=== PATIENT | female | born 1940 | race Caucasian/White ===

== ENCOUNTER 2023-08-27 11:18 | Day surgery (SDC) | payer MEDICARE, OTHER ==
[~2023-08-27] VITALS: Ht 149.9 cm; Wt 59.7 kg
[~2023-08-27 11:18] MED LIST: ALBU90OI INH; ASPI325EC PO; ASPI81CH PO; ATOR40TA PO; BENZ100A PO; Bactrim Ds Tab1 EACH PO; CENTRUM SILVER1 EAC2 PO; CHOL10002 PO; CLARITIN10 MG PO; CLOP75 PO; DICLOFENAC SOD100 G1 TOP; ESOM20 PO; HYDR1TAB94 PO; LEVSOD150 PO; LEVSOD200 PO; LEVSOD75 PO; LIPITOR; LOVA20 PO; MULTI-VITAMIN1 EAC2 PO; MULVITA PO; MULVITMIND PO; MYRBETRIQ50 MG PO; Mucinex600 MG PO; NAPR500 PO; NITR.4SL SL; Norco 5-325 Ta1 EACH PO; OMEP20ER PO; OMEPRAZOLE20 MG PO; OXYB5 PO; POTASSIUM GLUCO99 M1 PO; POTASSIUM PO; PRED20 PO; PSEU120ER PO; Percocet 5-3251 EACH PO; RISE35 PO; RISEDRONATE SO150 MG PO; SIMV40 PO; Simvastatin20 MG PO; TRAM50 PO; UBID100 PO; Ultram50 MG PO; VITAMIN D310 MC4 PO; Zantac150 MG PO; [UNRECOGNIZED DRUG - OTHER]
--- NOTE | 2023-08-27 12:05 | NUR ---
Ambulatory in Day Surgery Patient confirms NPO status and agrees with scheduled surgery. Pre-Op teaching done. Pt verbalizes understanding. History, Chart, Medications and Allergies reviewed before start of procedure.
--- NOTE | 2023-08-27 12:05 | NUR ---
PT HAS PRODCUTIVE COUGH. STATES SHE STOPPED TAKING HER ALLERGY MEDICATION FOR SURGERY AND HAS HAD THIS COUGH SINCE. DENIES OTHER S/S FLU/COLD
[2023-08-27 12:06] VITALS: BP 139/89
--- NOTE | 2023-08-27 12:16 | NUR ---
LUNGS CLEAR ON RIGHT. RHONCHI W/ EXPORATION ON LEFT SIDE UPPER AND LOWER LUNGS.
[2023-08-27] MEDS ORDERED: PSEU120ER (12:24)
[2023-08-27] MEDS ORDERED: ALLERGY MED (12:26)
--- NOTE | 2023-08-27 12:41 | NUR ---
1230: COVID TEST NEG. S/S REPORTED TO DR. LENTZ AND DR. NELSON. DR. NELSON TALKING WITH PATIENT RE: HEALTH HX AND NEW ONSET COUGH AND FEVER. WILL CANCEL CASE FOR NOW. PT TO F/U W/OFFICE 1240 PT AMBULATED FROM UNIT W/DAUGHTER
== END 2023-08-27 12:40 | disposition home or self-care (01) ==
LOC: ORSCMMR 11:18 → ORD 12:30 → ORSCMMR 12:40 → ORD 13:45
DX: M12.812 Other specific arthropathies, not elsewhere classified, left shoulder (principal); Z53.9 Procedure and treatment not carried out, unspecified reason
CPT/HCPCS: J0171; J0735; J1885; J2795